=== PATIENT | male | born 1995 | race Hispanic/Latino ===

== ENCOUNTER 2017-05-04 08:28 | Inpatient (IN) | payer SELFPAY ==
[~2017-05-04] VITALS: Ht 177.8 cm; Wt 101.3 kg
[2017-05-04] MEDS ORDERED: ACETAMINOPHEN EXTRA STRENGTH 500 MG TABLET ONE (09:13)
[2017-05-04] MEDS ORDERED: SODIUM CHLORIDE 0.9% 1000ML 4,000 ML IV ONE (09:13)
[2017-05-04] MEDS ORDERED: ONDANSETRON HCL 4 MG/2 ML VIAL ONE (09:13)
[2017-05-04 09:38] LABS: BASOPHILS % (AUTO) 0.2 % (0.0-5.0); EOSINOPHILS % (AUTO) 0.1 % (0.0-8.0); HEMATOCRIT 47.8 % (42-54); LYMPHOCYTES % (AUTO) 5.7 % (21.0-51.0); MEAN CORPUSCULAR HEMOGLOBIN 28.3 pg (27.0-33.0); MEAN CORPUSCULAR HGB CONC 34.2 g/dL (32.0-36.0); MEAN CORPUSCULAR VOLUME 82.6 fL (79-99); MONOCYTES % (AUTO) 5.1 % (3.0-13.0); NEUTROPHILS % (AUTO) 88.9 % (40.0-77.0); PLATELET COUNT (AUTO) 206 K/uL (130-400); RED BLOOD CELL COUNT(AUTO) 5.79 MIL/uL (4.50-6.20); RED CELL DISTRIBUTION WIDTH 12.6 % (11.0-15.5); WHITE BLOOD COUNT (AUTO) 12.5 K/uL (4.8-10.8)
[2017-05-04 09:52] LABS: APPEARANCE,URINE Clear (CLEAR); BILIRUBIN,URINE Negative (NEGATIVE); COLOR,URINE Yellow (YELLOW); GLUCOSE, URINE (UA) >=1000 mg/dL (NEGATIVE); KETONES,URINE 15 mg/dL (NEGATIVE); LEUKOCYTE ESTERASE ,URINE Moderate (NEGATIVE); NITRATE,URINE Negative (NEGATIVE); OCCULT BLOOD,URINE Small (NEGATIVE); PROTEIN,URINE Trace (NEGATIVE); UROBILINOGEN,URINE 0.2 mg/dL (0.2-1.0)
[2017-05-04 09:52] LABS: OCCULT BLOOD STOOL SINGLE ONLY POSITIVE (NEGATIVE)
[2017-05-04 09:56] LABS: CREATININE 0.9 mg/dL (0.5-1.5); POTASSIUM 3.2 mmol/L (3.5-5.1)
[2017-05-04 10:03] LABS: ALBUMIN 3.8 g/dL (3.5-5.0); TOTAL PROTEIN, SERUM 8.4 g/dL (6.0-8.3)
[2017-05-04 10:04] LABS: BACTERIA,URINE Moderate /HPF (None Seen); SQUAMOUS EPITHELIAL CELL,UR Rare /LPF (0-2); YEAST,URINE BUDDING Few /HPF (None Seen)
[2017-05-04] MEDS ORDERED: MAG HYDROX/AL HYDROX/SIMETH ES 30 ML SUSP UDCUP PO PRN (13:30)
[2017-05-04] MEDS ORDERED: ONDANSETRON HCL 4 MG/2 ML VIAL IV PRN (13:30)
[2017-05-04] MEDS ORDERED: GUAIFENESIN-DM 200/20 MG 10 ML PO PRN (13:30)
[2017-05-04] MEDS: LEVOFLOXACIN 500 MG/D5W 100 ML 100 ML IV SCH (13:30)
[2017-05-04] MEDS ORDERED: HYDROCODONE/ACETAMINOPHEN 5/325 MG TAB PO PRN (13:30)
[2017-05-04] MEDS ORDERED: ZOLPIDEM TARTRATE 5 MG TAB PO PRN (13:30)
[2017-05-04] MEDS ORDERED: METRONIDAZOLE 500 MG TABLET ONE (13:55)
[2017-05-04] MEDS ORDERED: SODIUM CHLORIDE 0.9% 1000ML 1,000 ML IV ONE (13:55)
[2017-05-04] MEDS ORDERED: LEVOFLOXACIN 500 MG/D5W 100 ML 100 ML ONE (13:55)
[2017-05-04] MEDS: METRONIDAZOLE 500 MG TABLET PO SCH ×2 (14:00→20:25)
[2017-05-04 15:58] VITALS: BP 118/60
[2017-05-04 19:00] VITALS: BP 123/66
[2017-05-04] MEDS: SODIUM CHLORIDE 0.9% 1000ML 1,000 ML IV SCH (20:24)
[2017-05-04] MEDS: FAMOTIDINE 20MG TAB 20 MG TAB PO SCH (20:25)
[2017-05-04] MEDS: MORPHINE SULFATE 2 MG/ML 1ML SYG IV PRN (23:37)
[2017-05-04 23:56] VITALS: BP 134/78
[2017-05-05 04:00] VITALS: BP 123/66
[2017-05-05] MEDS: MORPHINE SULFATE 2 MG/ML 1ML SYG IV PRN (06:28)
[2017-05-05 09:03] LABS: HEMATOCRIT 41.1 % (42-54); MEAN CORPUSCULAR HEMOGLOBIN 28.6 pg (27.0-33.0); MEAN CORPUSCULAR HGB CONC 34.6 g/dL (32.0-36.0); MEAN CORPUSCULAR VOLUME 82.6 fL (79-99); PLATELET COUNT (AUTO) 180 K/uL (130-400); RED BLOOD CELL COUNT(AUTO) 4.98 MIL/uL (4.50-6.20); RED CELL DISTRIBUTION WIDTH 12.6 % (11.0-15.5); WHITE BLOOD COUNT (AUTO) 8.1 K/uL (4.8-10.8)
[2017-05-05] MEDS: FAMOTIDINE 20MG TAB 20 MG TAB PO SCH ×2 (09:10→21:04)
[2017-05-05] MEDS: METRONIDAZOLE 500 MG TABLET PO SCH ×3 (09:10→21:04)
[2017-05-05] MEDS: SODIUM CHLORIDE 0.9% 1000ML 1,000 ML IV SCH ×2 (09:11→21:04)
[2017-05-05 09:17] LABS: BAND NEUTROPHILS % (MANUAL) 9 % (0-2); HEMOGLOBIN A1C 10.5 % (4.0-6.0); LYMPHOCYTES % (MANUAL) 19 % (22-44); MAN.DIFF COMMENT-IMPRESSION MANUAL DIFFERENTIAL; MONOCYTES % (MANUAL) 4 % (2-9); PLATELET MORPHOLOGY COMMENT ADEQUATE; SEGMENTED NEUTROPHILS % 68 % (40-70)
[2017-05-05 09:22] LABS: ALBUMIN 3.1 g/dL (3.5-5.0); BILIRUBIN,TOTAL 0.8 mg/dL (0.2-1.0); CREATININE 0.7 mg/dL (0.5-1.5); POTASSIUM 3.5 mmol/L (3.5-5.1); TOTAL PROTEIN, SERUM 7.3 g/dL (6.0-8.3)
[2017-05-05 09:26] VITALS: BP 113/55
[2017-05-05 12:00] VITALS: BP 150/61
[2017-05-05] MEDS ORDERED: GLUCAGON 1MG KIT 1 MG ML IM PRN (12:15)
[2017-05-05] MEDS ORDERED: DEXTROSE 50%-WATER 50 ML DISP.SYRIN IV PRN (12:15)
[2017-05-05] MEDS: LEVOFLOXACIN 500 MG/D5W 100 ML 100 ML IV SCH (13:15)
[2017-05-05 16:00] VITALS: BP 139/87
[2017-05-05] MEDS ORDERED: INSULIN HUMULIN R 100 UNIT/ML 3ML SQ ONE (17:21)
[2017-05-05] MEDS: INSULIN HUMULIN R 100 UNIT/ML 3ML SQ SCH ×2 (17:25→21:10)
[2017-05-05 20:00] VITALS: BP 138/88
[2017-05-06] VITALS: BP 114/62
[2017-05-06 04:00] VITALS: BP 115/66
[2017-05-06] MEDS: SODIUM CHLORIDE 0.9% 1000ML 1,000 ML IV SCH (06:09)
[2017-05-06] MEDS: INSULIN HUMULIN R 100 UNIT/ML 3ML SQ SCH ×2 (06:10→11:47)
[2017-05-06 08:25] VITALS: BP 142/80
[2017-05-06] MEDS: FAMOTIDINE 20MG TAB 20 MG TAB PO SCH (08:51)
[2017-05-06] MEDS: METRONIDAZOLE 500 MG TABLET PO SCH (08:51)
[2017-05-06] MEDS ORDERED: METF500T6 PO (08:58)
[2017-05-06] MEDS ORDERED: LEVO500T2 PO (08:58)
[2017-05-06 11:30] VITALS: BP 149/90
== END 2017-05-06 14:05 | disposition home or self-care (01) | DRG 392 ==
LOC: EDH 08:28 → EDHIP 08:29 → 3CH 14:56 → 3AH 05-05 10:54
PROVIDERS: ADMIT Family Medicine; ATTEND Family Medicine
DX: K52.9 Noninfective gastroenteritis and colitis, unspecified (principal); E11.65 Type 2 diabetes mellitus with hyperglycemia; E86.0 Dehydration; E87.6 Hypokalemia
CPT/HCPCS: 36415; 80053; 81001; 82270; 82948; 83036; 85025; 87040; 87046; 87205; 87324; 87804; J1815; J1956; J2405; J7030